=== PATIENT | male | born 1960 | race Caucasian/White ===

== ENCOUNTER → 2024-08-28 | Outpatient (CLI) | payer OTHER ==
--- NOTE | 2024-08-28 15:29 | DVH ---
CT LS SPINE WO CONTRAST, HISTORY: OTHER SPONDYLOSIS WITH RADICULOPATHY, CERVICAL REG COMPARISON: None PROCEDURE: Written informed consent was obtained. The patient was placed prone on the interventional table and prepped/draped in usual sterile fashion. Under fluoroscopy, a midline approach to the L2-3 interlaminar space was selected and the overlying skin anesthetized with several mL of 1% lidocaine. A 22G spinal needle was advanced under CT vision into the thecal sac with return of clear CSF. 10 cc of Omni 180 was then injected into the subarachnoid space. The needle was removed and myelograms obta ined in standard projections. The patient tolerated the procedure well without immediate complication . FINDINGS: The lumbar spine shows normal alignment. The vertebral body and disc space heights are pres erved. Contrast opacifies the subarachnoid space, revealing no significant indentation upon the theca l sac. The visible nerve roots are unremarkable. IMPRESSION: Lumbar spine myelography. Please see the report of the postmyelography CT for further results. SPINE WO CONTRAST INDICATION: OTHER SPONDYLOSIS WITH RADICULOPATHY, CERVICAL REG EXAM DATE: 08/28/2024 11:16 AM COMPARISON: None RADIATION DOSE: CTDIvol: 22 mGy, DLP: 5991 mGy*cm PROCEDURE: Utilizing the CT scanner, contiguous axial scans were obtained through the lumbar spine. C oronal and sagittal reformatted images were then generated. All CT scans at this medical facility are performed using dose modulation techniques as appropriate to a performed exam including the followin g: Automated exposure control was utilized; adjustment of the MA and/or KV according to patient size; and use of iterative reconstruction technique. FINDINGS: Intrathecal contrast material opacified the thecal space. Mild anterolisthesis of L5-S1 wit h a right pars interarticularis defect. The lumbar vertebral body heights and alignment are maintaine d. The intervertebral disc spaces are narrow and degenerative. The cortical margins are intact. The p araspinal soft tissues are normal. Incidentally noted is a left lateral disc bulge indenting the thec al sac at T10-11 with mild central canal narrowing to 9 mm. On axial images: At L1-2, there is a posterior disc osteophyte complex with no narrowing of the thecal sac . Severe bi lateral neural foramina narrowing at this level. Facet degenerative changes are seen. At L2-3, there is a posterior disc osteophyte complex with no narrowing of the thecal sac . Severe bi lateral neural foramina narrowing at this level. Facet degenerative changes are seen. At L3-4, there is a posterior disc osteophyte complex with mild narrowing of the thecal sac to 9 mm. Severe bilateral neural foramina narrowing at this level. Facet degenerative changes are seen. At L4-5, there is a posterior disc osteophyte complex with no narrowing of the thecal sac . Severe bi lateral neural foramina narrowing at this level. Facet degenerative changes are seen. At L5-S1, there is a posterior disc osteophyte complex with no narrowing of the thecal sac . Severe b ilateral neural foramina narrowing at this level. Facet degenerative changes are seen. IMPRESSION: Multilevel degenerative changes of the lumbar spine, with minimal to mild central canal narrowing at L3-4 to 9 mm. Multilevel severe bilateral neural foramina narrowing from L1-S1, as noted above. Incidentally noted is a left lateral disc bulge indenting the thecal sac at T10-11 with mild central canal narrowing to 9 mm.
--- NOTE | 2024-08-28 15:42 | DVH ---
CT CERVICAL WITHOUT CONTRAST INDICATION: OTHER SPONDYLOSIS WITH RADICULOPATHY, CERVICAL REG EXAM DATE: 08/28/2024 11:16 AM COMPARISON: None RADIATION DOSE: CTDIvol: 27 mGy, DLP: 5991 mGy*cm PROCEDURE: Utilizing the CT scanner, contiguous axial images were obtained through the cervical spine . Coronal and sagittal reformatted images were then generated. All CT scans at this medical facility are performed using dose modulation techniques as appropriate t o a performed exam including the following: Automated exposure control was utilized; adjustment of th e MA and/or KV according to patient size; and use of iterative reconstruction technique. FINDINGS: Intra-thecal contrast material is able to reach the skull base in the posterior fossa. C5-7 anterior cervical spinal hardware is seen. Alignment at the craniocervical junction is maintained. T he cortical margins are intact. The vertebral body heights and cervical alignment are normal. The fac et joints show normal alignment without fracture. The intervertebral disc spaces are narrow and degen erative. The paraspinal soft tissues appear normal. Emphysematous changes in the lungs with a 9 mm ri ght upper lobe pulmonary nodule vs scarring. On axial images: At C2-3, there is a posterior disc osteophyte complex, no central canal narrowing, severe right neura l foramina narrowing. Facet spondylosis is seen. At C3-4, there is a posterior disc osteophyte complex, no central canal narrowing, mild right neural foramina narrowing. Facet spondylosis is seen. At C4-5, there is a posterior disc osteophyte complex, no central canal narrowing, moderate bilateral neural foramina narrowing. Facet spondylosis is seen. At C5-6, there is a posterior disc osteophyte complex, no central canal narrowing, severe bilateral n eural foramina narrowing. Facet spondylosis is seen. At C6-7, there is a posterior disc osteophyte complex, no central canal narrowing, severe bilateral n eural foramina narrowing. Facet spondylosis is seen. At C7-T1, the disc, thecal sac, neural foramina and facet joints are normal. IMPRESSION: Intra-thecal contrast material is able to reach the skull base in the posterior fossa. C5-7 anterior cervical spinal hardware appears intact. Multilevel degenerative changes of the cervical spine without significant central canal narrowing. Ho wever multilevel neural foramina narrowing is seen as noted above.
== END | disposition home or self-care (01) ==
LOC: CT 10:18 → EDUNIT# 11:00
DX: M47.22 Other spondylosis with radiculopathy, cervical region (principal); M25.78 Osteophyte, vertebrae; M48.061 Spinal stenosis, lumbar region without neurogenic claudication
CPT/HCPCS: 62304; 72125; 72131